=== PATIENT | male | born 1930 | race Caucasian/White ===

== ENCOUNTER 2018-08-23 15:25 | Inpatient (IN) | payer OTHER ==
[~2018-08-23] VITALS: Ht 172.7 cm; Wt 62.7 kg
[~2018-08-23 15:25] MED LIST: ATEN25; CLOP75; LISI5; OTC ALLERGY MED; TIMO.5OPG; [UNRECOGNIZED DRUG - OTHER]; [UNRECOGNIZED DRUG - REMARK]
[2018-08-23 15:49] LABS: BASOPHILS ABSOLUTE AUTO 0.05 K/mm3 (0.00-0.23); BASOPHILS PERCENT AUTO 1 % (0-2); EOSINOPHILS ABSOLUTE AUTO 0.07 K/mm3 (0.00-0.68); EOSINOPHILS PERCENT AUTO 1 % (0-6); Hematocrit 43.6 % (37.0-53.0); Hemoglobin 13.5 g/dL (13.5-17.5); IMMATURE GRAN ABSOLUTE AUTO 0.01 K/mm3 (0.00-0.10); IMMATURE GRAN PERCENT AUTO 0 % (0-1); LYMPHOCYTES PERCENT AUTO 20 % (21-46); MONOCYTES ABSOLUTE AUTO 0.38 K/mm3 (0.16-1.47); MONOCYTES PERCENT AUTO 6 % (4-13); Mean Corpuscular HGB 29.3 pg (26.0-34.0); Mean Corpuscular Volume 95 fL (80-100); Mean Platelet Volume 10.2 fL (9.1-12.4); NEUTROPHILS ABSOLUTE AUTO 4.79 K/mm3 (1.96-9.15); NEUTROPHILS PERCENT AUTO 72 % (41-73); Platelet Count 326 K/mm3 (150-400); RDW Coefficient Variation 13.7 % (11.7-14.2); RDW Standard Deviation 47.8 fL (35.1-46.3); Red Blood Cell Count 4.61 M/mm3 (4.30-5.90)
[2018-08-23 16:15] LABS: Alanine Aminotransfer (ALT/SGP 18 U/L (12-78); Albumin, Blood 2.9 g/dL (3.4-5.0); Albumin/Globulin Ratio 0.8 (0.8-1.8); Alk Phos 54 U/L (50-136); Anion Gap 6 mmol/L (6-16); Aspartate Aminotrans (AST/SGOT 15 U/L (12-37); Bilirubin, Total 0.4 mg/dL (0.1-1.0); Blood Urea Nitrogen 26 mg/dL (8-24); CO2, Blood 28 mmol/L (21-32); Chloride, Blood 105 mmol/L (98-108); Creatinine, Blood 0.93 mg/dL (0.60-1.20); Globulin, Blood 3.8 g/dL (2.2-4.0); Glomerular Filtration Rate >60 (60-); Glucose, Blood 104 mg/dL (70-99); Potassium, Blood 4.5 mmol/L (3.5-5.5); Sodium, Blood 139 mmol/L (136-145); Total Protein, Blood 6.7 g/dL (6.4-8.2); Troponin I 0.194 ng/mL (0.000-0.040)
[2018-08-23] MEDS ORDERED: **INCOMPLETE MED REC (17:25)
[2018-08-23] MEDS ORDERED: FAMO20 PO (17:53)
[2018-08-23] MEDS ORDERED: DORZOLAMIDE 2%10 ML BOTHEYES (18:01)
[2018-08-23] MEDS ORDERED: TIMOPTIC 0.5%1 EACH BOTHEYES (18:02)
[2018-08-23 18:03] LABS: International Normalized Ratio 1.09; Prothrombin Time Results 11.5 Sec (9.7-11.5)
[2018-08-23] MEDS ORDERED: Xalatan2.5 ML BOTHEYES (18:03)
[2018-08-23] MEDS ORDERED: Aspirin EC81 MG PO (19:11)
[2018-08-23] MEDS ORDERED: Gas Relief80 MG PO (21:33)
--- NOTE | 2018-08-24 03:09 | NUR ---
ASSUMED CARE OF PATIENT AT APPROXIMATELY 2105 FROM ED RN LUISITO. PATIENT ARRIVED TO UNIT VIA STRETCHER AND TRANSFER WITH 2 ASSIST TO BED. PATIENT ALERT AND ORIENTED X3; FORGETFUL AND IMPULSIVE AT TIMES; AMBULATED TO URINATE INDEPENDENTLY ONCE; REPORTED HE DIDNT WANT TO SOAK THE BED BUT URINATED ALL OVER FLOOR. PATIENT HAS +4 EDEMA TO BLE; REPORTS CHRONIC; PATIENT USES A CANE A BASELINE. PATIENT HAS SOME WEAKNESS. PATIENT DENIES CP/PRESSURE, PAIN ELSEWHERE, DIZZINESS, NUMBNESS, TINGLING, DIZZINESS OR NAUSEA. PATIENT REPORT INTERMITTENT SOB. ADMISSION COMPLETE. PATIENT WAS SR ON TELE; CONVERTED TO AFIB; HX OF AFIB; OXYGEN SATURATION ABOVE 90% ON ROOM AIR. ADMISSION COMPLETE; HEPARIN INFUSING PER ORDER INTO LEFT WRIST PIV; 1L NS BOLUS GIVEN; 20G STARTED IN ROBERT. PATIENT CURRENTLY SLEEPING IN BED; CALL LIGHT IN REACH; BED IN LOWEST POSISTION; BED ALARM ON; WILL CONTINUE TO MONITOR AND ASSESS UNTIL END OF SHIFT.
[2018-08-24 03:50] LABS: BASOPHILS ABSOLUTE AUTO 0.05 K/mm3 (0.00-0.23); BASOPHILS PERCENT AUTO 1 % (0-2); EOSINOPHILS ABSOLUTE AUTO 0.15 K/mm3 (0.00-0.68); EOSINOPHILS PERCENT AUTO 2 % (0-6); Hematocrit 38.2 % (37.0-53.0); IMMATURE GRAN ABSOLUTE AUTO 0.01 K/mm3 (0.00-0.10); IMMATURE GRAN PERCENT AUTO 0 % (0-1); LYMPHOCYTES PERCENT AUTO 27 % (21-46); MONOCYTES ABSOLUTE AUTO 0.55 K/mm3 (0.16-1.47); MONOCYTES PERCENT AUTO 8 % (4-13); Mean Corpuscular HGB 29.2 pg (26.0-34.0); Mean Corpuscular HGB Conc 31.4 g/dL (31.5-36.5); Mean Corpuscular Volume 93 fL (80-100); Mean Platelet Volume 10.8 fL (9.1-12.4); NEUTROPHILS ABSOLUTE AUTO 4.22 K/mm3 (1.96-9.15); NEUTROPHILS PERCENT AUTO 62 % (41-73); Platelet Count 318 K/mm3 (150-400); RDW Coefficient Variation 13.6 % (11.7-14.2); RDW Standard Deviation 46.8 fL (35.1-46.3); Red Blood Cell Count 4.11 M/mm3 (4.30-5.90); White Blood Cell Count 6.78 K/mm3 (4.00-11.30)
--- NOTE | 2018-08-24 06:01 | NUR ---
NO ACUTE CHANGES TO REPORT. VSS. PATIENT SLEPT ABOUT EIGHT HOURS LAST NIGHT. WILL CONTINUE TO MONITOR AND ASSESS UNTIL END OF SHIFT.
--- NOTE | 2018-08-24 11:41 | NUR ---
Echocardiogram using 0.6ml of Definity contrast performed.
--- NOTE | 2018-08-25 06:54 | NUR ---
SHIFT SUMMARY PATIENT PLEASENT AND COOPERATIVE THROUGHOUT THE NIGHT. PATIENT NAPPED AT THE BEGINNING OF THE SHIFT BUT WAS AWAKE FOR SEVERAL HOURS IN THE MIDDLE OF THE NIGHT. PATIENT HAD COMPLAINTS OF FEELING CONSTIPATED. BOWEL CARE PROVIDED PER EMAR. PRUNE JUICE PROVIDED. PATIENT UNABLE TO HAVE A BM LAST NIGHT, HOWEVER PATIENT STATED THAT HE WAS ABLE TO PASS GAS SEVERAL TIMES. PATIENT THEN ABLE TO FALL BACK ASLEEP FOR THE LAST FEW HOURS OF THE SHIFT. HEPARIN GTT RUNNING PER ORDERS. PATIENT CURRENTLY APPEARS TO BE ASLEEP. WILL CONTINUE TO MONITOR PATIENT AND REPORT TO ONCOMING RN.
[2018-08-25 08:06] LABS: Anion Gap 7 mmol/L (6-16); Blood Urea Nitrogen 23 mg/dL (8-24); Bun/Creatinine Ratio 24.4 (12.0-20.0); CO2, Blood 24 mmol/L (21-32); Calcium, Blood 7.6 mg/dL (8.5-10.1); Chloride, Blood 107 mmol/L (98-108); Creatinine, Blood 0.94 mg/dL (0.60-1.20); Glomerular Filtration Rate >60 (60-); Glucose, Blood 112 mg/dL (70-99); Potassium, Blood 4.1 mmol/L (3.5-5.5); Sodium, Blood 138 mmol/L (136-145)
--- NOTE | 2018-08-25 10:36 | NUR ---
HEPARIN DRIP STOPPED AT THIS TIME.
--- NOTE | 2018-08-25 10:59 | NUR ---
Spoke with Dr. Cramer in person regarding the events of junctional rhythm which the pt has had 4 times within the past 45 minutes. Pt has been asymptomatic.
--- NOTE | 2018-08-25 12:51 | NUR ---
Noted low blood pressure at this time. The pt is sitting on the side of the bed, eating his lunch. STates that he just had a good bowel movement a short time ago. No complaints, but when asked he does say that he has some lightheadedness while sitting on side of bed, eating. Denies any lightheadedness or dizzyness when he got up to use the bathroom. Assisted to lying down position. Denies any dyspnea. Blood pressure rechecked while in lying position, 97/57.
--- NOTE | 2018-08-25 14:33 | NUR ---
the pt was lying on the bed with physical therapy and then got up to walk. Denies any lightheadedness/dizzyness with the activity. Vital signs were as follows per Physical therapist: lying (before any activity) B/P 77/45 pulse 63 sitting B/P 82/46, PULSE 67 standing B/P 80/44 PULSE 68 walking B/P 93/47 PULSE 72
--- NOTE | 2018-08-25 19:39 | NUR ---
shift summary: Pt resting in bed at this time with a HR in the 60's in a NSR. Pt did have 4 runs of junctional rhythm today which the gold plater is aware of. Pt had hypotention today after AM medications were given. Pt was asymptomatic with this but 500cc fluid bolus was given at around 1530. After this SBP increased to 100, then dropped back down to 90 systolically. Pt still asymptomatic with this. IVF running at TKO. Heprin Gtt was stopped today per orders. Pt has been able to stand and void at bedside. Had a large BM today. Has denied CP or SOB today. Report was given to night RN. Stable at this time.
[2018-08-26 04:31] LABS: Anion Gap 7 mmol/L (6-16); Blood Urea Nitrogen 21 mg/dL (8-24); Bun/Creatinine Ratio 20.2 (12.0-20.0); CO2, Blood 26 mmol/L (21-32); Calcium, Blood 7.6 mg/dL (8.5-10.1); Chloride, Blood 106 mmol/L (98-108); Creatinine, Blood 1.04 mg/dL (0.60-1.20); Glomerular Filtration Rate >60 (60-); Glucose, Blood 104 mg/dL (70-99); Potassium, Blood 4.1 mmol/L (3.5-5.5); Sodium, Blood 139 mmol/L (136-145)
--- NOTE | 2018-08-26 06:44 | NUR ---
SHIFT SUMMARY PATIENT PLEASENT AND COOPERATIVE THROUGHOUT THE NIGHT. PATIENT'S BLOOD PRESSURE STARTED TO RUN LOW AGAIN. HOWEVER, PATIENT WAS ASYMPTOMATIC WITH THE LOW BLOOD PRESSURE. DR MEEHAN NOTIFIED AND ANOTHER 500 ML BOLUS WAS ORDERED. VITAL SIGNS CHARTED. PATIENT REPORTS HE WAS UNABLE TO SLEEP WELL THROUGHOUT THE NIGHT, HOWEVER PATIENT APPEARED TO NAP ON AND OFF THROUGHOUT THE NIGHT. PATIENT CURRENTLY APPEARS TO BE ASLEEP. WILL CONTINUE TO MONITOR PATIENT AND REPORT TO ONCOMING RN.
--- NOTE | 2018-08-26 18:00 | NUR ---
1800 Blood pressure rechecked before administration of Coreg, and found to be TOO LOW TO ADMINISTER THE MEDICATIONS per prescribed parameters. The pt is sitting on the side of the bed, just having finished dinner. States he does not have any dizzyness or lightheadedness. He walked around the unit today in the afternoon with the physical therapist.
[2018-08-27 04:17] LABS: Anion Gap 6 mmol/L (6-16); Blood Urea Nitrogen 19 mg/dL (8-24); Bun/Creatinine Ratio 19.4 (12.0-20.0); CO2, Blood 27 mmol/L (21-32); Chloride, Blood 105 mmol/L (98-108); Creatinine, Blood 0.98 mg/dL (0.60-1.20); Glomerular Filtration Rate >60 (60-); Glucose, Blood 95 mg/dL (70-99); Sodium, Blood 138 mmol/L (136-145)
--- NOTE | 2018-08-27 07:35 | NUR ---
SHIFT SUMMARY PATIENT PLEASENT AND OCOOPERATIVE THROUGHOUT THE NIGHT. PATIENT APPEARED TO SLEEP WELL THROUGHOUT MOST OF THE NIGHT WITH NO COMPLAINTS OF PAIN OR DISCOMFORT. VITAL SIGNS CHARTED. REPORT GIVEN TO ONCOMING RN.
--- NOTE | 2018-08-27 19:32 | NUR ---
SHIFT SUMMARY. PT DOING WELL THIS SHIFT, WAS READY FOR D/C, ROADS WERE CLOSED DUE TO WEATHER, DISHARGE WAS HELD.
--- NOTE | 2018-08-28 06:02 | NUR ---
PCU NOC SHIFT SUMMARY PATIENT ALERT AND ORIENTED TO SELF AND SITUATION. PATIENT CONFUSED AND EASILY REORIENTED TO LOCATION/TIME/DATE. RESP E/U ON ROOM AIR. PATIENT CLEAR TO DIM ON LUNG SOUNDS. SEVERE BLE EDEMA NOTED THAT WORSENED T/P SJOFT EVEM WITH APPLICATON OF TUNDE HOSE. PATIENTS LAST BNP GREATER THAN 7,700 ON 08/25 - DISCUSSED WITH SOUND ENGINEER YUMIKO AND WILL PASS ON TO [facility]. PATIENT PEND D/C HOME TODAY. PATIENT STANDS TO URINATE IN URINAL WITH SBA. NO NOTED ACUTE CHANGES. WILL CONTINUE TO MONITOR AND GIVE REPORT TO [facility].
--- NOTE | 2018-08-28 07:48 | NUR ---
Report received from Fatuma Clark RN, and the pt was briefly seen and vital signs taken. Report then given to Paola Yen RN from surgical floor. The pt denies lightheadedness/dizzyness this morning. He got up from the bed and used the walker to get into the wheelchair. Taken to surgical floor room 228.
--- NOTE | 2018-08-28 09:30 | NUR ---
07:40 RECEIVED TO UNIT VIA W/C. PATIENT DENIES ANY CHEST PAIN OR SHORTNESS OF BREATH. DOES STATE HE FEELS AT TIME HIS "LUNG VOLUME" SEEMS TO BE LESS THAN NORMAL FOR HIM. HE DOES NOT HAVE DIFFICULTY TAKING A BREATH. SIGNIFICANT BILATERAL LOWER EXTREMITY EDEMA WHICH WAS REPORTED TO ME BY PREVIOUS RN THAT SWELLING IS DECREASED SINCE YESTERDAY.
[2018-08-28] MEDS ORDERED: CARV3.125 PO (12:25)
[2018-08-28] MEDS ORDERED: ATOR80 PO (12:25)
[2018-08-28] MEDS ORDERED: LISI5 PO (12:26)
[2018-08-28] MEDS ORDERED: CLOP75 PO (12:26)
[2018-08-28] MEDS ORDERED: GAVILAX17 GM PO (12:26)
[2018-08-28] MEDS ORDERED: FURO20 PO (12:26)
[2018-08-28] MEDS ORDERED: SPIR25 PO (12:27)
== END 2018-08-28 14:51 | disposition home health service (06) | DRG 280 ==
LOC: ER 15:25 → PCU 17:30 → SURS 08-28 07:49
PROVIDERS: Emergency Medicine; Internal Medicine Cardiovascular Disease; ADMIT Hospitalist
DX: I21.4 Non-ST elevation (NSTEMI) myocardial infarction (principal); I50.21 Acute systolic (congestive) heart failure; H40.9 Unspecified glaucoma; I25.10 Atherosclerotic heart disease of native coronary artery without angina pectoris; I25.5 Ischemic cardiomyopathy; I48.0 Paroxysmal atrial fibrillation; I95.2 Hypotension due to drugs; T50.1X5A Adverse effect of loop [high-ceiling] diuretics, initial encounter; Y92.230 Patient room in hospital as the place of occurrence of the external cause; I11.0 Hypertensive heart disease with heart failure; E78.5 Hyperlipidemia, unspecified; D64.9 Anemia, unspecified; Z95.5 Presence of coronary angioplasty implant and graft; Q82.0 Hereditary lymphedema; Z91.81 History of falling; Z79.82 Long term (current) use of aspirin; Z79.899 Other long term (current) drug therapy; Z85.46 Personal history of malignant neoplasm of prostate
CPT/HCPCS: 36415; 71046; 80048; 80053; 83880; 84484; 85025; 85610; 85730; 93005; 93010; 96361; 96365; 96366; 97110; 97116; 97162; 97165; 97530; 97535; 99285-25; C8929; J1644; J1940; J7030; Q9957

== ENCOUNTER 2018-09-06 12:06 | Emergency (ER) | payer OTHER ==
[~2018-09-06] VITALS: Ht 175.3 cm; Wt 54.4 kg
[~2018-09-06 12:06] MED LIST changes: +**INCOMPLETE MED REC; +ATOR80 PO; +Aspirin EC81 MG PO; +CARV3.125 PO; +CLOP75 PO; +DORZOLAMIDE 2%10 ML BOTHEYES; +FAMO20 PO; +FURO20 PO; +GAVILAX17 GM PO; +Gas Relief80 MG PO; +LISI5 PO; +SPIR25 PO; +TIMOPTIC 0.5%1 EACH BOTHEYES; +Xalatan2.5 ML BOTHEYES
[2018-09-06 12:47] LABS: BASOPHILS ABSOLUTE AUTO 0.05 K/mm3 (0.00-0.23); BASOPHILS PERCENT AUTO 1 % (0-2); EOSINOPHILS ABSOLUTE AUTO 0.08 K/mm3 (0.00-0.68); EOSINOPHILS PERCENT AUTO 1 % (0-6); Hematocrit 37.9 % (37.0-53.0); Hemoglobin 12.1 g/dL (13.5-17.5); IMMATURE GRAN ABSOLUTE AUTO 0.02 K/mm3 (0.00-0.10); IMMATURE GRAN PERCENT AUTO 0 % (0-1); LYMPHOCYTES ABSOLUTE AUTO 1.26 K/mm3 (0.84-5.20); LYMPHOCYTES PERCENT AUTO 17 % (21-46); MONOCYTES PERCENT AUTO 7 % (4-13); Mean Corpuscular HGB Conc 31.9 g/dL (31.5-36.5); Mean Corpuscular Volume 94 fL (80-100); Mean Platelet Volume 10.9 fL (9.1-12.4); NEUTROPHILS ABSOLUTE AUTO 5.33 K/mm3 (1.96-9.15); NEUTROPHILS PERCENT AUTO 74 % (41-73); Platelet Count 264 K/mm3 (150-400); RDW Coefficient Variation 14.4 % (11.7-14.2); RDW Standard Deviation 49.4 fL (35.1-46.3); Red Blood Cell Count 4.03 M/mm3 (4.30-5.90); White Blood Cell Count 7.24 K/mm3 (4.00-11.30)
[2018-09-06 13:04] LABS: Alanine Aminotransfer (ALT/SGP 20 U/L (12-78); Albumin/Globulin Ratio 0.9 (0.8-1.8); Alk Phos 50 U/L (50-136); Anion Gap 8 mmol/L (6-16); Aspartate Aminotrans (AST/SGOT 17 U/L (12-37); Bilirubin, Total 0.6 mg/dL (0.1-1.0); Blood Urea Nitrogen 33 mg/dL (8-24); Bun/Creatinine Ratio 37.7 (12.0-20.0); CO2, Blood 26 mmol/L (21-32); Calcium, Blood 8.1 mg/dL (8.5-10.1); Chloride, Blood 101 mmol/L (98-108); Creatinine, Blood 0.88 mg/dL (0.60-1.20); Globulin, Blood 3.4 g/dL (2.2-4.0); Glomerular Filtration Rate >60 (60-); Glucose, Blood 93 mg/dL (70-99); Potassium, Blood 4.2 mmol/L (3.5-5.5); Sodium, Blood 135 mmol/L (136-145); Total Protein, Blood 6.4 g/dL (6.4-8.2)
[2018-09-06 13:36] LABS: Source, Urine Clean Catch
[2018-09-06 13:55] LABS: Bilirubin, Urine Neg (Neg); Blood, Urine 2+ (Neg); Glucose Qualitative, Urine Neg (Neg); Ketones, Urine Neg (Neg); Leukocyte Esterase, Urine Neg (Neg); Nitrite, Urine Neg (Neg); Protein, Urine Neg (Neg); Urobilinogen, Urine NORM (Normal)
[2018-09-06 14:30] LABS: Appearance, Urine Clear (Clear); Color, Urine Yellow (P-Yellow)
[2018-09-06 14:31] LABS: Bacteria Rare /hpf; Squamous Epithelial Cells Not Seen /hpf (Few); White Blood Cells, Urine 0-2 /hpf (0-5)
== END 2018-09-06 17:36 | disposition home or self-care (01) ==
LOC: ER 12:06
PROVIDERS: Emergency Medicine
DX: R41.82 Altered mental status, unspecified (principal); I25.10 Atherosclerotic heart disease of native coronary artery without angina pectoris; I50.9 Heart failure, unspecified; Z79.899 Other long term (current) drug therapy; Z79.82 Long term (current) use of aspirin; Z79.02 Long term (current) use of antithrombotics/antiplatelets
CPT/HCPCS: 71045; 80053; 81001; 83880; 84484; 85025; 93005; 93010; 99285-25